=== PATIENT | male | born 1945 | race Caucasian/White ===

== ENCOUNTER 2022-12-04 11:30 | Emergency (ER) | payer MEDICARE, SELFPAY ==
--- NOTE | 2022-12-04 11:30 | RT.EKG_ITS ---
APPROVED REPORT Exam: Resting ECG Reason for Exam: chest pain Patient Location: E HR:73 bpm ECG Measurements Heart Rate 73 AXIS SD 203 P -25 QRSd 109 QRS -37 QT 395 T 3 QTc 436 Conclusion Sinus rhythm...normal P axis, V-rate 60- 99 Inferior infarct, old...Q >35mS, II III aVF Anterior infarct, old...Q >40mS, abnormal ST-T, V2-V5 sinus rhythm, left axis, normal intervals, t wave inversion III avf, consider lateral st segment depr ession
[2022-12-04 11:33] VITALS: BP 168/82; PULSE 72; RESP 18; TEMP 37; O2SAT 98
--- NOTE | 2022-12-04 11:45 | DI.CT_ITS ---
Exam(s) CT THORAX ABD/PEL CTA EXAM: CT THORAX ABD/PEL CTA CLINICAL HISTORY: right lower ext pain heaviness, hx enlarged aorta. TECHNIQUE: Imaging Protocol: Axial CT angiography was performed with multi-slice acquisition and mu lti-planar and/or 3D reconstructions. CONTRAST MATERIAL: Intravenous: Omnipaque 350 Contrast volume:100 ml COMPARISON: No exams were available for comparison FINDINGS: CHEST: Pulmonary Arteries: No evidence of filling defects to suggest pulmonary emboli. Tracheobronchial tree: No bronchiectasis or mucus plugging. Mediastinum and Lianna: No dominant adenopathy or fluid collection. Pulmonary parenchyma: No consolidation or dominant measurable mass. Jyiw-de-cdjhgmts changes of pulm onary fibrosis. Pleura: No effusion. No pneumothorax. Heart: The heart is notdilated. Axok-vh-dvxqjkie coronary artery calcifications are seen. Aorta: Thoracic aorta non-dilated. No aneurysm. No dissection. Moderate atherosclerotic changes. Bones: Degenerative changes in the spine. No compression fractures. Tubes, Catheters, and Lines: None. ABDOMEN and PELVIS: Liver: Normal size. Normal density. No suspicious measurable mass. Portal, Superior Mesenteric, and Splenic Veins: Unremarkable. Gallbladder and Biliary Tract: No radiodense calculus. No biliary dilatation. Pancreas: Normal density, no abnormal calcifications or inflammatory process. Spleen: Normal. Adrenals: No masses seen. Kidneys: Normal size, contour and axis. No radiodense stones. No obstructive uropathy. Simple renal cysts. No follow-up recommended. No suspicious masses seen. Vasculature: Abdominal aorta non-dilated. Moderate atherosclerotic changes. Mild dilatation left il iac artery. No significant stenosis external iliac or common femoral arteries. Celiac axis, SMA, IM A and renal arteries are patent. Bowel: Mild diverticulosis. No obstruction or bowel wall thickening. Appendix is unremarkable. Peritoneal Cavity: No ascites, collection or mesenteric inflammatory response. Lymph Nodes: Within normal limits. Soft Tissues: Unremarkable. Bladder: Symmetric distention, no gross wall thickening. Reproductive Organs: Unremarkable as visualized. Lymph Nodes: Within normal limits. Bones: Degenerative changes. No evidence of fracture, lytic or blastic lesion IMPRESSION: 1. No evidence of pulmonary embolism, aortic dissection or other acute abnormality in the chest. Pulm onary fibrosis noted. 2. No acute abdominal or pelvic process. RADIATION DOSE DELIVERED: Total DLP DATA REPOSITORY: All CT scans at this facility are submitted to the National Radiology Data Registry (NRDR) Dose Index Registry (DIR) with the [employer] ([employer]). RADIATION OPTIMIZATION: All CT scans at this facility use at least one of these dose optimization te chniques: automated exposure control; mA and/or kV adjustment per patient size (includes targeted exa ms where dose is matched to clinical indication); or iterative reconstruction.
--- NOTE | 2022-12-04 11:45 | DI.CT_ITS ---
Exam(s) CT HEAD WO EXAM: CT HEAD WO CLINICAL HISTORY: right sided arm and leg heaviness. TECHNIQUE: Imaging Protocol: Axial computed tomography images with coronal and sagittal reformatted images were created and reviewed COMPARISON: No exams were available for comparison FINDINGS: Ventricles and Extra axial spaces: Normal in size and morphology for the patient's age. Hemorrhage: None. Cerebral parenchyma: No evidence of acute infarct or mass. Mild atrophy and white matter changes con sistent with the patient's age. Tiny old left basal ganglia lacunar infarct. Midline shift: None. Brainstem/Cerebellum: Normal. Calvarium: Normal. Visualized Paranasal sinuses/Mastoids: Clear. Soft Tissues: Unremarkable. IMPRESSION: No acute intracranial process. RADIATION DOSE DELIVERED: Total DLP DATA REPOSITORY: All CT scans at this facility are submitted to the National Radiology Data Registry (NRDR) Dose Index Registry (DIR) with the [employer] ([employer]). RADIATION OPTIMIZATION: All CT scans at this facility use at least one of these dose optimization te chniques: automated exposure control; mA and/or kV adjustment per patient size (includes targeted exa ms where dose is matched to clinical indication); or iterative reconstruction.
--- NOTE | 2022-12-04 11:50 | W.ED.GENAD ---
Discharge Plan Disposition Patient Disposition: Home Condition: Improving Discharge Details Chief Complaint: CVA/TIA Clinical Impression: Paresthesia Primary Care Provider: Deedee,Local ED Provider: Gareth Worthington Discharge Instructions Instructions: Paresthesia (ED) Additional Instructions: Please follow-up closely with your primary care physician. Please return to the Emergency Department for any worsening symptoms Medical Decision Making 77-year-old male history of coronary disease, stents, presents with acute onset right upper and right lower extremity heaviness that began while walking [place] a flea market, denies chest pain denies shortness of breath, denies dizziness, does endorse a history of enlarged aorta, patient is hemodynamically stable no to be hypertense on arrival, cranial nerves II through XII intact, 5 out of 5 strength upper and lower extremities bilaterally, no truncal ataxia, no pronator drift, patient has normal speech, EKG normal sinus rhythm left axis T wave inversion inferior leads consider ST segment depression V4 V5, given history and presentation must consider aortic pathology such as enlarging aneurysm versus dissection but also consider CVA versus TIA lower suspicion for PE, must also consider DVT, will also evaluate for electrolyte abnormalities, stat CT head, CT angio chest abdomen pelvis, close reassessment 14: 29 patient resting comfortably no acute distress. Asymptomatic. Sensation of heaviness/numbness to right side upper and lower extremities has completely resolved. CT head CTA chest abdomen pelvis negative. Patient follow-up close with his primary care physician at home in [place]. Given home care instructions and strict return precautions HPI General Date/Time Provider Initiated Documentation: 12/04/22 11:42. HPI Narrative: 77-year-old male history of enlarged aorta presents with sudden onset heaviness to right arm and right leg while walking at a flea market, denies chest pain or shortness of breath denies abdominal pain, denies history of CVA, does have history of coronary disease and stents. General Stated Complaint: CVA/TIA TAVIA: 2 Review of Systems Narrative: Review of Systems Constitutional: negative Eyes: negative ENT: negative Cardiovascular: negative Respiratory: negative Gastrointestinal: negative : negative Musculoskeletal: negative Skin: negative Neurologic: Leg heaviness, arm having Psych: negative PFSH All Active Problems (Updated 12/04/22 @ 14:30 by Gareth Worthington MD) Paresthesia (Acute) Social History Smoking risk assessment performed?: No Exam Narrative Exam Narrative: Physical Examination General: alert, awake, cooperative, resting comfortably, no acute distress HEENT: normocephalic, atraumatic; PERRL, EOM intact, conjunctiva normal; no nasal discharge; moist mucous membranes, oral and pharyngeal mucosa normal, tolerating secretions Neck: supple, trachea midline; full ROM Chest: normal to inspection Respiratory: normal respiratory effort, speaking in full sentences, clear to auscultation, no wheezing, rales or rhonchi Cardiac: regular rate, regular rhythm, S1S2 intact, no murmurs rubs or gallops GI: abdomen soft, non-tender, non-distended; no palpable mass or hepatosplenomegaly Skin: no lesions, rashes or trauma appreciated Neuro: AAOx3, normal speech, moving all extremities; 5 out of 5 strength upper and lower extremities, cranial nerves II through XII intact, no truncal ataxia, no pronator drift, equal sensation bilateral upper and lower extremities Extremities: Warm well perfused, equal DP pulses Psych: Appropriate mood and affect Course Vital Signs Vital signs: Vital Signs Temperature 37.0 C 12/04/22 11:33 Pulse 72 12/04/22 11:33 Respiratory Rate 18 12/04/22 11:33 Blood Pressure 168/82 H 12/04/22 11:33 Pulse Oximetry 98 12/04/22 11:33 Temperature 37.0 C 12/04/22 11:33 Temperature Source Skin 12/04/22 11:33 Pulse 72 12/04/22 11:33 Respiratory Rate 18 12/04/22 11:33 Blood Pressure 168/82 H 12/04/22 11:33 Pulse Oximetry 98 12/04/22 11:33 Oxygen Delivery Method Room Air 12/04/22 11:33 Oxygen Flow Rate 0 12/04/22 11:33 Pain Level 0 12/04/22 11:33 Comment took his BP med today 12/04/22 11:33
[2022-12-04 12:02] LABS: Abs Immature Grans 0.02 10^3/uL (0.0-0.06); Absolute Basophil Count 0.05 10^3/uL (0.0-0.2); Absolute Lymphocyte Count 2.28 10^3/uL (1.2-3.4); Absolute Monocyte Count 0.92 10^3/uL (0.1-0.8); Absolute Neutrophil Count 5.97 10^3/uL (1.2-6.7); Basophils % 0.5; Eosinophils % 2.1; HGB 15.5 g/dL (13.5-17.5); Immature Grans % 0.2; Lymphocytes % 24.2; MCH 30.4 pg (27.0-33.0); MCHC 34.4 % (32.0-36.0); MCV 88 fL (80-95); MPV 9.2 fL (8.0-11.0); Monocytes % 9.7; Neutrophils % 63.3; Platelet Count 220 10^3/uL (130-400); RDW 14.3 % (11.8-14.1); RDW-SD 46.2 fL; WBC 9.44 10^3/uL (4.4-10.8)
[2022-12-04 12:21] LABS: PTT Activated 26.7 sec (23.6-32.8); Prothrombin Time 10.3 sec (9.1-11.1)
[2022-12-04 12:29] LABS: ALT 38 U/L (16-63); AST 24 U/L (15-37); Albumin 3.8 g/dL (3.4-5.0); Alkaline Phosphatase 144 U/L (46-116); Anion Gap 7.7 mmol/L (3-11); BUN 21 mg/dL (7-18); Bilirubin, Total 0.6 mg/dL (0.2-1.0); CO2 27.3 mmol/L (21.0-32.0); CREATININE 1.3 mg/dL (0.70-1.30); Calcium 9.6 mg/dL (8.5-10.1); Chloride 106 mmol/L (98-107); Estimated GFR 55.88 (mL/min/1.73m2); Glucose 111 mg/dL (74-106); Potassium 4.3 mmol/L (3.5-5.1); Sodium 141 mmol/L (136-145); TSH (W/Ref FT4) 2.55 uIU/mL (0.36-3.74); Total Protein 8.3 g/dL (6.4-8.2); Troponin I < 50 ng/L (<or=60)
[2022-12-04] MEDS: Normal Saline - Diluent 50 ML VIAL IJ (12:54)
[2022-12-04] MEDS: Omnipaque 350 MG/ML 100 ML BTL IJ (12:57)
--- NOTE | 2022-12-04 13:34 | DI.VRAD_ITS ---
PROCEDURE INFORMATION: Exam: CTA Chest With Contrast CTA Abdomen and Pelvis With Contrast Exam date and time: 12/04/2022 12:44 PM Age: 77 years old Clinical indication: Other: Right lower ext pain heaviness, HX enlarged aorta; Prior surgery; Surgery date: 6+ months; Surgery type: Stents TECHNIQUE: Imaging protocol: Computed tomographic angiography of the chest with contrast. Exam focused on the arteries. Computed tomographic angiography of the abdomen and pelvis with contrast. Exam focused on the arteries. 3D rendering (Not supervised by radiologist): MIP and/or 3D reconstructed images were created by the technologist. Contrast material: OMNIPAQUE 350; COMPARISON: No relevant prior studies available. FINDINGS: VASCULATURE: Pulmonary arteries: Normal. No pulmonary emboli. Aorta: No aortic aneurysm. No aortic dissection. Moderate atherosclerotic calcification. Aortic ductus diverticulum incidentally noted. Celiac trunk and mesenteric arteries: No occlusion or significant stenosis. Renal arteries: No occlusion or significant stenosis. Right iliac arteries: No occlusion or significant stenosis. Left iliac arteries: No occlusion or significant stenosis. CHEST: Lungs: Chronic appearing pleuroparenchymal changes bilaterally. No focal consolidation. Pleural spaces: Unremarkable. No pneumothorax. No pleural effusion. Heart: Unremarkable. No cardiomegaly. No pericardial effusion. ABDOMEN AND PELVIS: Liver: No mass. Gallbladder and bile ducts: Unremarkable. No calcified stones. No ductal dilation. Pancreas: Unremarkable. No mass. No ductal dilation. Spleen: Unremarkable. No splenomegaly. Adrenal glands: Unremarkable. No mass. Kidneys and ureters: Simple cortical renal cysts left kidney, largest measures 3.7 x 2.9 cm. No hydronephrosis. Stomach and bowel: Unremarkable. No obstruction. No mucosal thickening. Appendix: No evidence of appendicitis. Intraperitoneal space: Unremarkable. No free air. No significant fluid collection. Urinary bladder: Unremarkable. No mass. Reproductive: Unremarkable as visualized. Lymph nodes: Unremarkable. No enlarged lymph nodes. Bones/joints: Unremarkable. No acute fracture. Soft tissues: Unremarkable. IMPRESSION: No acute abnormality. Dictated and Authenticated by: Meghan Maddox MD. Ordering:CLAY Servin MD
--- NOTE | 2022-12-04 13:54 | DI.VRAD_ITS ---
PROCEDURE INFORMATION: Exam: CT Head Without Contrast Exam date and time: 12/04/2022 12:40 PM Age: 77 years old Clinical indication: Other: Right lower ext pain heaviness, HX enlarged aorta TECHNIQUE: Imaging protocol: Computed tomography of the head without contrast. COMPARISON: No relevant prior studies available. 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 There is a mild amount of periventricular white matter lucency consistent with microangiopathy. Examination negative for mass or mass effect, midline shift or intraparenchymal hemorrhage. No acute stroke. No abnormal extra-axial fluid collections. Cerebral ventricles: Mild dilatation of the lateral ventricles cisterns and sulci. Paranasal sinuses: Visualized sinuses are unremarkable. No fluid levels. Mastoid air cells: Visualized mastoid air cells are well aerated. Bones/joints: Unremarkable. No acute fracture. Soft tissues: Unremarkable. IMPRESSION: No acute intracranial abnormality. Dictated and Authenticated by: Thomas Mcnair MD. Ordering:CLAY Servin MD
[2022-12-04 14:35] VITALS: BP 145/89; PULSE 65; RESP 16; O2SAT 99
== END 2022-12-04 14:42 | disposition home or self-care (01) ==
LOC: ER 14:45
PROVIDERS: Emergency Provider Emergency Medicine
DX: R53.1 Weakness (principal); R20.0 Anesthesia of skin; G45.9 Transient cerebral ischemic attack, unspecified; I25.10 Atherosclerotic heart disease of native coronary artery without angina pectoris; Z95.5 Presence of coronary angioplasty implant and graft; I77.89 Other specified disorders of arteries and arterioles
CPT/HCPCS: 36415; 71275; 80053; 93005; 99285; 70450; 74174; 84443; 84484; 85025; 85610; 85730; 93010; 99284; J3490